=== PATIENT | female | born 1995 | race Caucasian/White ===

== ENCOUNTER 2018-03-02 22:40 | Emergency (ER) | payer OTHER ==
[~2018-03-02] VITALS: Ht 172.7 cm; Wt 80.0 kg
[2018-03-02] MEDS ORDERED: LORazepam 1MG TABLET PO ONE (23:30)
[2018-03-02 23:33] LABS: BASOPHILS # (AUTO) 0.01 x10^3/uL (0-0.1); BASOPHILS % (AUTO) 0 % (0-1); EOSINOPHILS # (AUTO) 0.05 x10^3/uL (0-0.4); EOSINOPHILS % (AUTO) 1 % (1-7); LYMPHOCYTES # (AUTO) 0.97 x10^3/uL (1-3.4); LYMPHOCYTES % (AUTO) 22 % (22-44); MD NO; MEAN CORPUSCULAR HGB CONC 33.6 g/dL (32.4-35.8); MEAN CORPUSCULAR VOLUME 86.1 fL (80-100); MEAN PLATELET VOLUME 10.5 fL (7.4-10.4); MONOCYTES # (AUTO) 0.36 x10^3/uL (0.2-0.8); MONOCYTES % (AUTO) 8 % (2-9); NEUTROPHILS # (AUTO) 2.98 x10^3/uL (1.8-6.8); NEUTROPHILS % (AUTO) 68 % (42-75); PLATELET COUNT 189 x10^3/uL (130-400); RED BLOOD COUNT 3.76 x10^6/uL (3.82-5.3); RED CELL DISTRIBUTION WIDTH 13.9 % (9.6-15.2)
[2018-03-02] MEDS ORDERED: LORazepam 1MG TABLET ONE (23:34)
[2018-03-02] MEDS ORDERED: LORazepam 2 MG/ML, 1ML ONE (23:37)
[2018-03-02 23:40] LABS: ALANINE AMINOTRANSFERASE 15 U/L (12-78); ALBUMIN 3.4 g/dL (3.4-5.0); ANION GAP 8 mmol/L (5-15); CALCIUM 8.2 mg/dL (8.5-10.1); CHLORIDE 111 mmol/L (98-107); CREATININE 0.63 mg/dL (0.55-1.02)
[2018-03-02 23:42] LABS: ALKALINE PHOSPHATASE 67 U/L (45-117); BILIRUBIN,TOTAL 0.2 mg/dL (0.2-1.0); TOTAL PROTEIN 6.9 g/dL (6.4-8.2)
[2018-03-03] MEDS ORDERED: LORazepam 2 MG/ML, 1ML IVPush ONE
[2018-03-03 00:01] LABS: HCG UR SG 1.017 (1.003-1.030); MICROSCOPIC AUTO
[2018-03-03 00:06] LABS: CULTURE INDICATED? YES
[2018-03-03] MEDS ORDERED: SODIUM CHLORIDE 0.9% 1,000ML IVBOLUS ONE (02:30)
[2018-03-03 03:54] VITALS: BP 107/61
== END 2018-03-03 05:02 | disposition home or self-care (01) ==
LOC: ED 03-03 00:43
DX: R56.9 Unspecified convulsions (principal); R51 Headache; R42 Dizziness and giddiness
CPT/HCPCS: 36415; 80053; 81001; 81025; 85025; 87086; 93005; 96361; 96374; 99284; J2060; J7030